=== PATIENT | male | born 1965 | race Caucasian/White ===

== ENCOUNTER 2021-11-03 10:06 | Outpatient (CLI) | payer OTHER, SELFPAY ==
[2021-11-03] VITALS (10 sets, daily range): BP systolic 86–103; BP diastolic 59–73; PULSE 60–77; RESP 12–14; O2SAT 92–99
[2021-11-03 10:31] LABS: Hemoglobin* 14.3 gm/dL (13.5-17.5)
[2021-11-03 10:57] LABS: Iron* 163 ug/dL (49-181)
[2021-11-03 11:07] LABS: Percent Iron Saturation 76 % (20-50); Total Iron Binding Capacity 214 ug/dL (261-462)
--- NOTE | 2021-11-04 12:25 | PC.NURSE ---
Rapid response called from Lab staff after patient lost consciousness, starting shaking and became very sweaty after lab draw. Staff arrived and patient had come to. Skin pale, clammy to touch. He was alert and oriented x3. Patient's legs were elevated, cold pack was placed behind neck and juice was given. Vitals signs monitored. Patient ambulated with spouse out of facility when he returned to baseline. Rapid response form filled out.
== END 2021-11-03 10:07 | disposition home or self-care (01) ==
DX: E83.110 Hereditary hemochromatosis (principal)
CPT/HCPCS: 36415; 82728; 83540; 83550; 85018; 99195

== ENCOUNTER 2022-06-28 17:48 | Outpatient (RCR) | payer OTHER, SELFPAY ==
[2022-06-28 17:59] LABS: Hemoglobin* 12.8 gm/dL (13.5-17.5)
[2022-06-28 18:24] LABS: Iron* 23 ug/dL (49-181)
[2022-06-28 18:33] LABS: Percent Iron Saturation 7 % (20-50); Total Iron Binding Capacity 305 ug/dL (261-462)
[2022-06-28 18:59] LABS: Ferritin* 15.2 ng/mL (17.9-464.0)
== END 2023-06-24 17:00 | disposition home or self-care (01) ==
LOC: LAB 17:48
PROVIDERS: PCP Physician Assistant Medical; Visit Provider Physician Assistant Medical
DX: E83.110 Hereditary hemochromatosis (principal)
CPT/HCPCS: 36415; 82728; 83540; 83550; 85018; 99195

== ENCOUNTER 2023-02-28 13:07 | Outpatient (RCR) | payer OTHER, SELFPAY ==
[2021-11-18 15:06] LABS: Hemoglobin* 12.9 gm/dL (13.5-17.5)
[2021-12-20 18:34] LABS: Basophils Absolute Auto 0.11 K/uL (0.00-0.30); Basophils Percent Auto 1.3 % (0.0-3.0); Eosinophils Absolute Auto 0.48 K/uL (0.00-0.50); Eosinophils Percent Auto 5.7 % (0.0-7.0); Hematocrit 40.7 % (37.0-53.0); Hemoglobin* 13.9 gm/dL (13.5-17.5); Immature Granulocytes Abs Auto 0.01 K/uL (0.00-0.30); Lymphocytes Absolute Auto 2.71 K/uL (0.90-2.90); Lymphocytes Percent Auto 32.4 % (20-44); Mean Corpuscular HGB Conc 34 gm/dL (32-36); Mean Corpuscular Hemoglobin 32 pg (26-34); Mean Corpuscular Volume 95 fL (80-100); Monocytes Percent Auto 7.7 % (0.0-11.0); Neutrophils Absolute Auto 4.41 K/uL (1.7-7.0); Neutrophils Percent Auto 52.8 % (42.0-72.0); Platelet Count* 251 K/uL (140-440); RDW Coefficient of Variation % 12.5 % (11.5-15.5); Red Blood Count 4.29 m/uL (4.30-5.90); White Blood Count* 8.36 K/uL (4.50-11.00)
[2021-12-20 18:47] LABS: Slide Review Reflex No
[2021-12-20 19:10] LABS: Iron* 129 ug/dL (49-181)
[2021-12-20 19:19] LABS: Percent Iron Saturation 52 % (20-50); Total Iron Binding Capacity 250 ug/dL (261-462)
[2021-12-29 17:02] LABS: Hemoglobin* 12.9 gm/dL (13.5-17.5)
[2021-12-29 17:35] LABS: Iron* 155 ug/dL (49-181)
[2021-12-29 17:44] LABS: Percent Iron Saturation 67 % (20-50); Total Iron Binding Capacity 230 ug/dL (261-462)
[2021-12-29 18:11] LABS: Ferritin* 91.8 ng/mL (17.9-464.0)
[2022-02-10 09:56] LABS: Hemoglobin* 14.5 gm/dL (13.5-17.5)
[2022-02-10 10:52] LABS: Ferritin* 36.2 ng/mL (17.9-464.0)
[2022-02-10 11:14] LABS: Iron* 112 ug/dL (49-181)
[2022-02-10 11:23] LABS: Percent Iron Saturation 47 % (20-50); Total Iron Binding Capacity 237 ug/dL (261-462)
[2022-03-02 11:20] LABS: Hemoglobin* 15.8 gm/dL (13.5-17.5)
[2022-03-02 12:10] LABS: Iron* 147 ug/dL (49-181)
[2022-03-02 12:19] LABS: Percent Iron Saturation 54 % (20-50); Total Iron Binding Capacity 269 ug/dL (261-462)
[2022-03-02 12:46] LABS: Ferritin* 26.9 ng/mL (17.9-464.0)
[2022-03-15 17:37] LABS: Hemoglobin* 13.4 gm/dL (13.5-17.5)
[2022-03-15 20:38] LABS: Iron* 77 ug/dL (49-181)
[2022-03-15 20:47] LABS: Percent Iron Saturation 28 % (20-50); Total Iron Binding Capacity 277 ug/dL (261-462)
[2022-03-15 21:04] LABS: Ferritin* 16.6 ng/mL (17.9-464.0)
[2022-03-22 18:25] LABS: Iron* 37 ug/dL (49-181)
[2022-03-22 18:35] LABS: Percent Iron Saturation 14 % (20-50); Total Iron Binding Capacity 267 ug/dL (261-462)
[2022-03-22 18:54] LABS: Ferritin* 13.2 ng/mL (17.9-464.0)
[2022-03-29 17:26] LABS: Hemoglobin* 11.1 gm/dL (13.5-17.5)
[2022-03-29 18:08] LABS: Iron* 25 ug/dL (49-181)
[2022-03-29 18:17] LABS: Percent Iron Saturation 9 % (20-50); Total Iron Binding Capacity 262 ug/dL (261-462)
[2022-03-29 20:31] LABS: Ferritin* 9.7 ng/mL (17.9-464.0)
[2022-10-18 17:05] LABS: Hemoglobin* 13.2 gm/dL (13.5-17.5)
[2022-10-18 17:47] LABS: Iron* 72 ug/dL (49-181)
[2022-10-18 17:57] LABS: Percent Iron Saturation 28 % (20-50); Total Iron Binding Capacity 253 ug/dL (261-462)
[2022-10-18 18:22] LABS: Ferritin* 11.1 ng/mL (17.9-464.0)
[2023-02-28 13:27] LABS: Hemoglobin* 14.7 gm/dL (13.5-17.5)
[2023-02-28 14:02] LABS: Iron* 68 ug/dL (49-181)
[2023-02-28 14:11] LABS: Percent Iron Saturation 24 % (20-50); Total Iron Binding Capacity 286 ug/dL (261-462)
[2023-02-28 14:40] LABS: Ferritin* 12.9 ng/mL (17.9-464.0)
== END 2023-07-08 14:27 | disposition home or self-care (01) ==
LOC: LAB 13:07
PROVIDERS: PCP Physician Assistant Medical; Visit Provider Physician Assistant Medical
DX: E83.110 Hereditary hemochromatosis (principal)
CPT/HCPCS: 36415; 82728; 83540; 83550; 85018; 85025; 99195